=== PATIENT | male | born 1935 ===

== ENCOUNTER 2017-02-12 12:20 | Inpatient (IN) | payer MEDICARE, OTHER ==
[~2017-02-12] VITALS: Ht 160 cm; Wt 53.1 kg
[2017-02-12 12:25] VITALS: BP 147/118; PULSE 77; RESP 31; O2SAT 99
--- NOTE | 2017-02-12 12:28 | ED.REPORT ---
HPI-Stroke / CVA Feb 12, 2017 ED Provider: Sanya Sy MD Patient is an 82 year old male with a hx of HTN who presents to the ED s/p he called his daughter at 1145 and she noticed that he had slurred speech. He managed to tell her that he had total L sided numbness and trouble walking due to L sided weakness. He denies hematuria, hematochezia, or any other symptoms. He does not take any daily medications, including ASA. Nursing Notes Stated Complaint: STROKE Chief Complaint: Neuro Symptoms/ Deficits Nursing Notes Reviewed: Yes Allergies: Coded Allergies: No Known Allergies (Verified Allergy, Unknown, 07/27/14) No Active Prescriptions or Reported Meds General Time Seen by Provider: 12:28 Chief Complaint Slurred speech Left-sided Hx Obtained From: Patient, Other family... Arrived By: Wheelchair Time last known well 1145 Sudden in Onset?: Yes Symptom Duration: Since onset Progression Since Onset: Gradually improving Severity: Current: No pain currently Severity: Maximum: No pain Context: Immunizations Unknown Recent Healthcare: Recent doctor visit Risk Factors )( TPA Administration/Criteria Stroke Thrombolytic Therapy : TPA Considered: Yes Neurologist Contacted: Yes Disc Risk/Benefit/Alternatives: Yes Consent Obtained: Patient Intensive Monitoring Performed: Yes TPA Administered Intravenously: Yes Complications Encountered: No Exclusion Criteria: DBP > 110 despite Tx NIH Stroke Scale Level of Consciousness: Alert and responsive (0) Ask Month & Age: Both questions right (0) Open/Close 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 both tasks (0) Horizontal EO Movements: None (0) Visual Kingsley: No visual loss (0) Facial Palsy: Normal symmetry (0) Right Arm Motor Drift (10s): No drift 10 sec (0) Left Arm Motor Drift (10s): No drift 10 sec (0) Right Leg Motor Drift (5s): No drift 5 sec (0) Left Leg Motor Drift (5s): Drift, hits bed (2) Limb Ataxia FNF/Heel-Farfan: No ataxia (0) Sensation (Arms/Legs/Face): P-prick dull but felt (1) Language Aphasia: No aphasia, normal (0) (Pt cannot read and cannot see well due to cataracts ) Dysarthria: No dysarthria, normal (0) (Pt cannot read and cannot see well due to cataracts ) Extinction/Inattention: No exctinct/inattent (0) NIHSS Score: 3 Time NIHSS Performed: 12:39 Date NIHSS Performed: Feb 12, 2017 )( CVA Risk Stratification Age >60 HypertensionNo EtOH use, No Smoking Risk factors reviewed Past Medical History 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 Male: Denies Hematuria Physical Exam Initial Vital Signs Vital Signs (First) Date Time Temp Pulse Resp B/P Pulse Ox O2 Delivery O2 Flow Rate FiO2 02/12/17 12:25 36.7 77 31 147/118 99 Room Air 02/12/17 13:15 2 Initial VS: Reviewed, Unavailable (none on britt) Abdomen / GI: Soft, Non-tender Skin: Warm, Dry Psychiatric: Mood/affect normal, Behavior normal General/Constitutional: Awake, Alert, No acute distress Conversant Illiterate Head / Eyes: Atraumatic, Normocephalic, PERRL Cataracts present, complicating stroke scale Neck: Atraumatic, Supple, Full range of motion Respiratory / Chest: Atraumatic, Breath sounds NL, Breath sounds = bilat, No respiratory distress Cardiovascular: Heart rate NL, Regular rhythm, Heart sounds NL Neurologic: Oriented X3, Speech NL Left lower extremity motor and sensory defecits Left ipper extremity sensory deficit. stroke scale score 3 Interpretation & Diagnostics Lab Results Interpretation Result Diagram: 02/12/17 1230 02/12/17 1230 Test 02/12/17 12:30 02/12/17 13:11 White Blood Count 5.7th/mm3 (3.8-10.1) Red Blood Count 3.45mil/mm3 (4.40-5.80) Hemoglobin 10.2g/dL (13.8-17.2) Hematocrit 31.4% (41.0-50.0) Mean Corpuscular Volume 91.0fL (81-100) Mean Corpuscular Hemoglobin 29.6pg (27.0-35.0) Mean Corpuscular Hemoglobin Concent 32.5% (32.0-37.0) Red Cell Distribution Width 13.1% (12.3-15.4) Platelet Count 305bil/L (150-400) Neutrophils (%) (Auto) 61.8% (40-74) Lymphocytes (%) (Auto) 27.3% (14-46) Monocytes (%) (Auto) 9.1% (4-12) Eosinophils (%) (Auto) 0.9% (0-5) Basophils (%) (Auto) 0.7% (0-3) Prothrombin Time 10.2sec (8.1-12.5) Prothromb Time International Ratio 0.95ratio Activated Partial Thromboplast Time 24.7sec (22.8-33.0) Sodium Level 133mEq/L (134-144) Potassium Level 4.2mEq/L (3.5-5.2) Chloride Level 98mEq/L (97-108) Carbon Dioxide Level 21mmol/L (18-29) Blood Urea Nitrogen 16mg/dL (8-27) Creatinine 1.07mg/dL (0.76-1.27) Estimat Glomerular Filtration Rate 70mL/min (>59) Glucose Level 134mg/dL (60-99) Calcium Level 9.0mg/dL (8.5-10.1) Magnesium Level 2.2mg/dL (1.6-2.6) Total Bilirubin 0.3mg/dL (0.0-1.2) Aspartate Amino Transf (AST/SGOT) 33U/L (0-50) Alanine Aminotransferase (ALT/SGPT) 16U/L (0-44) Alkaline Phosphatase 167U/L (25-160) Troponin T < 0.010ug/L (0.0-0.011) Total Protein 7.4g/dL (6.4-8.4) Albumin 3.6g/dL (3.4-5.0) Prealbumin 16mg/dL (20-40) Triglycerides Level 48mg/dL (0-149) Cholesterol Level 153mg/dL (100-199) LDL Cholesterol, Calculated 52.400mg/dL (0-99) VLDL Cholesterol 9.600mg/dL HDL Cholesterol 91mg/dL (>39) Cholesterol/HDL Ratio 1.68 (0.0-4.4) Hold Calvo Top Tube Received (Received) Lab Results Interpretation: CBC normal CMP normal ECG Interpretation ECG Interpretation: Sinus rate 66 no ischemia or abnormalities Time: 13:54 Interpreted by: ED physician X-Ray Chest Interpretation Chest Xray Interpretation: IMPRESSION: No acute cardiopulmonary disease. Dictated by: Octavio Peña M.D. on 02/12/2017 at 13:09 Approved by: Octavio Peña M.D. on 02/12/2017 at 13:09 View: Portable, 1 view Interpretation / Wet Read by: Interpret - Radiologist CT Head Interpretation IMPRESSION: 1. No acute intracranial abnormality. 2. Findings relayed to Dr. Sy via ER front man staff Javy on 02.12.17 at 1234 hrs. This study fulfills neurological imaging criteria for inclusion or exclusion of acute stroke therapies based on available published neurological guidelines. Dictated by: Lawson Bursn M.D. on 02/12/2017 at 12:33 Approved by: Lawson Bursn M.D. on 02/12/2017 at 12:35 Study: Head CT no contrast Interpretation / Wet Read by: Interpret - Radiologist Re-Eval/Medical Decision Med Decision/Clinical Course This is an 82-year-old male reports not being on any medications had a last known normal was 11:45 AM with sudden onset of left arm and left leg symptoms concerning for CVA. Patient presented and was declared and immediate code stroke and taken to CT scan. Accu-Chek was normal. On evaluation patient has persistent neurologic deficits with an NIH stroke scale of 3, with inability to ambulate due to dense weakness in the left leg, making him a reasonable candidate for TPA. He had an initial contraindication of an elevated diastolic blood pressure 2, sorbitol was ordered, but on repeat and subsequent serial blood pressure medicine and's the diastolic was normal, so no medication or intubation was required. Telemedicine consultation to neurology's service at [facility] confirmed and agreed with administration of TPA. Checklist was used and TPA was administered. Patient is being admitted to [facility] for continued care. The neurologist Dr. duffyuck a spine consult and follow as an inpatient given use of TPA. Subsequent to admission, at ~1429 patient's symptoms fully resolved. 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 Given the level severity, the images were reviewed with neurology at [facility], while the patient is a candidate for mechanical thrombectomy, he is a potential candidate for carotid endarterectomy , and there is no vascular surgery availability at [facility]. [facility] would like the patient transferred to help facilitate expedited management, and this seems appropriate for the past patient care. Patient and family are updated. Source of Hx: Old records Re-Evaluation/Progress #1: Time of Eval: 13:00 )( Re-Eval Neurologic Exam: Alert Re-Evaluation/Progress Note: Discussed plan for admission and possibility of TPA. Patient understands and agrees with plan. All questions addressed at this time. Re-Evaluation/Progress #2: Time of Eval: 14:28 )( Re-Eval Neurologic Exam: Pt is back to baseline Re-Evaluation/Progress Note: Symptoms have now resolved, patient's able to the use of the left leg, also reports the numbness in the left arm and left leg has resolved - his only complaint is the discomfort in IV in the right side. Patient advised of need for admission, basic plan. Re-Evaluation/Progress #3: Time of Eval: 15:09 )( Re-Eval Neurologic Exam: Pt is back to baseline Re-Evaluation/Progress Note: Discussed plan for transfer. Patient understands and agrees with plan. All questions addressed at this time. Re-Evaluation/Progress #4: Time of Eval: 15:34 Re-Evaluation/Progress Note: Patient has developed a subconjunctival asymptomatic hemorrhage on the right eye. He is doing well neurologically. He is updated along with the family regarding the internal carotid artery stenosis, and the plan to transfer to [facility] Consultation #1: Call Returned at: 13:10 Note: Discussed pt's case with [facility] neurology. Will evaluate pt for TPA at bedside. Consultation #2: Call Returned at: 13:38 Note: Discussed pt's case with [facility] neurology. Give pt TPA. Consultation #3: Referral / Consult Name: Zaki Robertson MD Consulted With: Neurology Call Returned at: 13:54 Note: Discussed pt's case. Agrees to consult. Consultation #4: Referral / Consult Name: Gualberto Lebron MD Consulted With: Hospitalist Call Returned at: 14:12 Archeologist: Will see patient, Agrees with eval, Agrees with plan, Accepts admit Note: Discussed pt's case. Agrees to admit. Consultation #5: Call Returned at: 15:05 Note: Discussed pt's case with [facility] neurology who would like the pt transfered to them. Counseled Regarding: Diagnosis, Lab results, Need for admission Patient Discharge & Departure Impression: Primary Impression: Stroke CVA mechanism: unspecified Qualified Code: I63.9 - Cerebral infarction, unspecified Additional Impression: Left hemiplegia Disposition: Transfer, Acute Care Facility Receiving Hospital: [facility], neurology Transfer Accepted: Yes Transfer Reason: Higher level of care Spoke with: Specialty physician Patient Status: Stable Patient Informed: Yes Discharge Condition All VS Reviewed: Yes Condition: Stable (ERASED) Referrals: Ana Flores PA-C (PCP) Crit Care Except Billable Proc Time Spent: 30-74 minutes Services Performed: Patient management by me, Time spent at bedside, Reviewing test results, Reviewing imaging, Discussing patient care, Documentation in record, Time with fam/surrogate Scribe Attestation Portions of this note were transcribed by Karma Rogers. I, Dr. Sy personally performed the history, physical exam and medical decision-making; I reviewed and confirmed the accuracy of the information in the transcribed note. Signed by: Cristina Cerrato, 02/12/17 copies to: Ana Flores PA-C, Matthew F MD Feb 12, 2017 12:28 KARMA ROGERS Feb 12, 2017 12:45
--- NOTE | 2017-02-12 12:37 | DRSVH ---
PROCEDURE: CT BRAIN TPA INDICATIONS: Possible CVA TECHNIQUE: Noncontrast 4.5 mm thick angled axial sections acquired from the foramen magnum to the vertex, with c oronal reformats. COMPARISON: None. FINDINGS: Image quality: Excellent. CSF spaces: Basal cisterns are patent. No extra-axial fluid collections. The ventricles are symmet aquiles in size and shape. Brain: No intracranial bleeds or masses. There is cerebral volume loss for age, with resultant vent ricular and sulcal prominence. There are periventricular and deep white matter chronic small vessel ischemic changes. There is intracranial internal carotid artery atherosclerosis. Skull and face: Right parietal craniectomy. Right frontal shahriar hole. Calvarium and visualized facial bones otherwise appear intact, without suspicious lesions. Sinuses: Visualized sinuses and mastoids are clear. IMPRESSION: 1. No acute intracranial abnormality. 2. Findings relayed to Dr. Sy via ER front desk host staff Javy on 02.12.17 at 1234 hrs. This study fulfills neurological imaging criteria for inclusion or exclusion of acute stroke therapie s based on available published neurological guidelines. Dictated by: Lawson Burns M.D. on 02/12/2017 at 12:33 Approved by: Lawson Burns M.D. on 02/12/2017 at 12:35
[2017-02-12 13:00] VITALS: BP 140/117; PULSE 72; RESP 20; O2SAT 98
[2017-02-12 13:05] LABS: BASOPHILS % (AUTO) 0.7 % (0-3); EOSINOPHILS % (AUTO) 0.9 % (0-5); MONOCYTES % (AUTO) 9.1 % (4-12); Mean Corpuscular Hemoglobin 29.6 pg (27.0-35.0); NEUTROPHILS % (AUTO) 61.8 % (40-74); Platelet Count 305 bil/L (150-400)
[2017-02-12 13:09] LABS: INR 0.95 ratio
[2017-02-12] MEDS ORDERED: Labetalol 5 mg/mL 20 mL Inj IV PRN (13:10)
--- NOTE | 2017-02-12 13:11 | DRSVH ---
PROCEDURE: X-RAY CHEST ONE VIEW, PORTABLE ([id number]) INDICATIONS: 82-year-old male with cerebrovascular accident. TECHNIQUE: One view of the chest was acquired. COMPARISON: [facility], CR, CHEST 2VW, 07/27/2014, 21:31. [facility], CR, CHEST 2 V IEW, 05/28/2011, 12:47. [facility], RG, XR CXR 2 VIEW, 03/30/2000, 12:23. FINDINGS: Surgical changes and devices: Surgical clips project over the right upper quadrant as before. Lungs and pleura: No pleural effusions or pneumothorax. Lungs are clear. Mediastinum: Mediastinal contours appear normal. Heart size is normal. There is aortic atheroscler osis. Bones and chest wall: No suspicious bony lesions. Overlying soft tissues appear unremarkable. IMPRESSION: No acute cardiopulmonary disease. Dictated by: Octavio Peña M.D. on 02/12/2017 at 13:09 Approved by: Octavio Peña M.D. on 02/12/2017 at 13:09
[2017-02-12 13:15] VITALS: BP 141/63; PULSE 69; RESP 21; O2SAT 99
[2017-02-12 13:20] LABS: TROPONIN T < 0.010 ug/L (0.0-0.011)
[2017-02-12] MEDS ORDERED: Alteplase Dose Per Pharmacist XX ONE (13:25)
[2017-02-12] MEDS ORDERED: Alteplase (TPA) 100 mg/100 mL Premix IV ONE (13:25)
[2017-02-12 13:35] VITALS: BP 145/74; PULSE 70; RESP 17; O2SAT 99
[2017-02-12] MEDS ORDERED: Alteplase (No Charge) 1 mg/mL Syringe IV ONE (13:35)
[2017-02-12 14:00] VITALS: BP 141/67; PULSE 72; RESP 21
[2017-02-12] MEDS ORDERED: 0.9% Sodium Chloride 1,000 ML IV PRN (14:16)
[2017-02-12] MEDS ORDERED: Ondansetron 2 mg/mL 2 mL Inj IVPUSH PRN (14:20)
[2017-02-12] MEDS ORDERED: hydrALAZINE 20 mg/mL Inj IVPUSH PRN (14:20)
[2017-02-12] MEDS ORDERED: Labetalol 5 mg/mL 20 mL Inj IVPUSH PRN (14:20)
[2017-02-12] MEDS ORDERED: Alteplase Dose Per Pharmacist XX SCH (14:20)
--- NOTE | 2017-02-12 14:45 | DRSVH ---
PROCEDURE: CT ANGIO BRAIN NECK TPA INDICATIONS: Ischemia TECHNIQUE: Pre-contrast 4.5 mm thick sections acquired from the foramen magnum to the vertex. After the adminis tration of intravenous contrast, 1 mm thick sections acquired from the aortic arch through the [place] of Hernandez. Post-contrast 4.5 mm thick sections then re-acquired from the foramen magnum to the vert ex. 3-dimensional [id number] (MIP) and/or volume rendering reformats were acquired of the central intracranial vasculature and neck separately. For radiation dose reduction, the foll owing was used: automated exposure control, adjustment of mA and/or kV according to patient size. COMPARISON: [facility], CT, CT BRAIN TPA, 02/12/2017, 12:30. FINDINGS: Image quality: Excellent. BRAIN: The ventricular system and cortical sulci demonstrate atrophy, consistent for the patient's stated ag e. There are areas of increased T2/FLAIR signal intensity within the periventricular and subcortical white matter. There is no acute intra-or extra axial fluid collection. No acute hemorrhage, mass les ion or midline shift. Brainstem is unremarkable. There are no areas of restricted diffusion. Globes a re symmetrical. Sinuses are aerated. Osseous structures are intact. HEAD CT ANGIOGRAPHY: The posterior circulation demonstrates a vertebral artery codominance. Basilar artery and posterior c erebral arteries demonstrate no areas of hemodynamically significant stenosis, vascular occlusion or aneurysmal dilation. Posterior communicating arteries are within normal limits. The anterior circulation, including the anterior and middle cerebral arteries, as well as internal ca rotid arteries demonstrates no areas of hemodynamically significant stenosis, vascular occlusion or a neurysmal dilation. NECK CT ANGIOGRAPHY: The origins of the left and right common and external carotid arteries demonstrate no areas of hemody namically significant stenosis, vascular occlusion or aneurysmal dilation. There is less than 50% rd nosis at the origin of the left internal carotid artery. There is a focal segment of the proximal rig ht internal carotid artery, arising approximately 8 mm distal to the origin, measuring approximately 14 mm with only a very small central portion of opacified luminal flow. There is reconstitution of fl ow distally. Origins of the left and right vertebral arteries demonstrate no areas of hemodynamically significant stenosis, vascular occlusion or aneurysmal dilation. Aortic arch demonstrates convention al anatomy. Limited, visualized portions subclavian vasculature are unremarkable. IMPRESSION: 1. No acute intracranial process. 2. Moderate atrophy and chronic microvascular ischemic changes. 3. No areas of hemodynamically significant stenosis, vascular occlusion or aneurysmal dilation within the posterior circulation. 4. Focal segment of near complete occlusion near the origin of the right internal carotid artery as a lora. 5. No areas of hemodynamically significant stenosis, vascular occlusion or aneurysmal dilation within the anterior circulation. The above findings were discussed with Dr. Sanya Steen 02/12/17 at 2:40 PM. Dictated by: Connie Paul M.D. on 02/12/2017 at 14:32 Approved by: Connie Paul M.D. on 02/12/2017 at 14:44
[2017-02-12 14:51] LABS: Magnesium 2.2 mg/dL (1.6-2.6)
--- NOTE | 2017-02-12 15:43 | DRSVH ---
PROCEDURE: MRI BRAIN WITHOUT CONTRAST ([id number]) INDICATIONS: L weakness TECHNIQUE: Non-contrast axial T1 spin echo, axial T2 fast spin echo, sagittal and axial FLAIR, coronal T2 fast s pin echo, axial gradient echo, axial diffusion and ADC through the brain. COMPARISON: [facility], CT, CT ANGIO BRAIN NECK TPA, 02/12/2017, 14:01. FINDINGS: Image quality: Excellent. CSF spaces: Ventricles appear symmetric in size and shape. Basal cisterns are patent. No extra-axi al fluid collections. Brain: No intracranial bleeds or mass effects. There is cerebral volume loss for age. There are pe riventricular and deep white matter chronic small vessel ischemic changes. Brainstem appears normal. Diffusion-weighted images show no acute ischemic insults. No chronic ischemic insults. Normal int ravascular flow voids are present. Skull and face: Calvarial bone marrow is normal in signal. Orbits are normal. Sinuses: Sinuses and mastoids are clear. IMPRESSION: 1. No acute process. No recent infarct. 2. Volume loss and small vessel ischemic disease. Dictated by: Lawson Burns M.D. on 02/12/2017 at 15:40 Approved by: Lawson Burns M.D. on 02/12/2017 at 15:41
[2017-02-12 15:52] LABS: APPEARANCE,URINE CLEAR (CLEAR,HAZY); COLOR,URINE STRAW (YELLOW); PH,URINE 6.5 (5.0-8.0)
[2017-02-12 15:53] LABS: OCCULT BLOOD,URINE TRACE (NEGATIVE); UROBILINOGEN,URINE NORMAL (NORMAL)
[2017-02-12 16:31] VITALS: BP 150/68; PULSE 79; RESP 25; O2SAT 99
== END 2017-02-12 17:35 | disposition short-term general hospital (02) | DRG 62 ==
LOC: SED 12:20 → CCU 14:14 → OBSVTOIN 14:14 → CCU 14:40
PROVIDERS: ADMIT Internal Medicine; ATTEND Internal Medicine
DX: I63.231 Cerebral infarction due to unspecified occlusion or stenosis of right carotid arteries (principal); G81.94 Hemiplegia, unspecified affecting left nondominant side; R29.703 NIHSS score 3; Z87.891 Personal history of nicotine dependence; R40.2362 Coma scale, best motor response, obeys commands, at arrival to emergency department; R40.2142 Coma scale, eyes open, spontaneous, at arrival to emergency department; R40.2252 Coma scale, best verbal response, oriented, at arrival to emergency department; R40.2412 Glasgow coma scale score 13-15, at arrival to emergency department

== ENCOUNTER 2017-02-26 11:10 | Emergency (ER) | payer MEDICARE, OTHER ==
[~2017-02-26] VITALS: Ht 160 cm; Wt 45.9 kg
[2017-02-26 11:18] VITALS: BP 136/66; PULSE 87; RESP 16; O2SAT 100
[2017-02-26 11:42] LABS: BASOPHILS % (AUTO) 0.3 % (0-3); EOSINOPHILS % (AUTO) 0.2 % (0-5); MONOCYTES % (AUTO) 9.7 % (4-12); Mean Corpuscular Hemoglobin 29.2 pg (27.0-35.0); Mean Corpuscular Volume 92.9 fL (81-100); NEUTROPHILS % (AUTO) 67.1 % (40-74); Platelet Count 566 bil/L (150-400)
--- NOTE | 2017-02-26 11:45 | DRSVH ---
PROCEDURE: X-RAY CHEST ONE VIEW, PORTABLE ([id number]) INDICATIONS: CHEST PAIN TECHNIQUE: One view of the chest was acquired. COMPARISON: [facility], CR, CHEST 2VW, 07/27/2014, 21:31. [facility], CR, XR CHEST 1VW (PORTABLE), 02/12/2017, 12:57. FINDINGS: Surgical changes and devices: Cholecystectomy clips are seen. Lungs and pleura: No pleural effusions or pneumothorax. Lungs are clear. Mediastinum: The cardiac contours are within normal limits. The aorta demonstrates calcification and tortuosity. Bones and chest wall: Age-appropriate bony degenerative changes are seen. No suspicious bony lesion s. Overlying soft tissues appear unremarkable. IMPRESSION: Unremarkable imaging examination for age. Dictated by: Lopez Marin M.D. on 02/26/2017 at 11:43 Approved by: Lopez Marin M.D. on 02/26/2017 at 11:44
--- NOTE | 2017-02-26 11:51 | ED.REPORT ---
HPI-General Illness Date of Service Feb 26, 2017 ED Provider: Silvio Leon MD Patient is a 82 year old male with a history of stroke, status post carotid endarderectomy who presents to the ED due to low blood pressure. He reports that he took a nitro because he was experiencing chest pain but this is not unusual for him and the chest pain was not different than what he normally feels. The patient was doing PT at home, and when his blood pressure dropped the physical therapist became concerned and recommended he come to the ED for evaluation.Patient denies abdominal pain or other symptoms at this time. 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 Physical Exam Vital Signs Vital Signs Date Time Temp Pulse Resp B/P Pulse Ox O2 Delivery O2 Flow Rate FiO2 02/26/17 12:25 89 22 133/59 94 Room Air 02/26/17 12:21 89 22 133/59 94 Room Air 02/26/17 11:18 36.7 87 16 136/66 100 Room Air Initial VS: Reviewed General/Constitutional: Awake, Alert, No acute distress Head / Eyes: Atraumatic, Normocephalic Respiratory / Chest: Atraumatic, Breath sounds NL, Breath sounds = bilat, No respiratory distress Cardiovascular: Heart rate NL, Regular rhythm, Heart sounds NL Abdomen: Atraumatic, Soft, Non-tender Lower Extremity / Pelvis / MS: Atraumatic, No edema Skin: Warm, Dry Neurologic: Oriented X3, Speech NL Interpretation & Diagnostics Lab Results Interpretation Result Diagram: 02/26/17 1129 02/26/17 1129 Test 02/26/17 11:29 02/26/17 13:11 White Blood Count 6.1th/mm3 (3.8-10.1) Red Blood Count 3.08mil/mm3 (4.40-5.80) Hemoglobin 9.0g/dL (13.8-17.2) Hematocrit 28.6% (41.0-50.0) Mean Corpuscular Volume 92.9fL (81-100) Mean Corpuscular Hemoglobin 29.2pg (27.0-35.0) Mean Corpuscular Hemoglobin Concent 31.5% (32.0-37.0) Red Cell Distribution Width 13.9% (12.3-15.4) Platelet Count 566bil/L (150-400) Neutrophils (%) (Auto) 67.1% (40-74) Lymphocytes (%) (Auto) 22.4% (14-46) Monocytes (%) (Auto) 9.7% (4-12) Eosinophils (%) (Auto) 0.2% (0-5) Basophils (%) (Auto) 0.3% (0-3) Activated Partial Thromboplast Time 25.7sec (22.8-33.0) Sodium Level 134mEq/L (134-144) Potassium Level 4.2mEq/L (3.5-5.2) Chloride Level 96mEq/L (97-108) Carbon Dioxide Level 23mmol/L (18-29) Blood Urea Nitrogen 15mg/dL (8-27) Creatinine 0.99mg/dL (0.76-1.27) Estimat Glomerular Filtration Rate 77mL/min (>59) Glucose Level 143mg/dL (60-99) Calcium Level 8.9mg/dL (8.5-10.1) Magnesium Level 2.1mg/dL (1.6-2.6) Total Bilirubin 0.3mg/dL (0.0-1.2) Aspartate Amino Transf (AST/SGOT) 29U/L (0-50) Alanine Aminotransferase (ALT/SGPT) 14U/L (0-44) Alkaline Phosphatase 187U/L (25-160) Troponin T 0.010ug/L (0.0-0.011) Pro-B-Type Natriuretic Peptide 867.5pg/mL (0-486) Total Protein 7.5g/dL (6.4-8.4) Albumin 3.3g/dL (3.4-5.0) Hold [place] Top Tube Received (Received) ECG Interpretation Time: 11:25 Interpreted by: ED physician Normal ECG Interpretation: Normal rate (87), Normal sinus rhythm X-Ray Chest Interpretation Chest Xray Interpretation: IMPRESSION: Unremarkable imaging examination for age. Dictated by: Lopez Marin M.D. on 02/26/2017 at 11:43 Approved by: Lopez Marin M.D. on 02/26/2017 at 11:44 Interpretation / Wet Read by: Interpret - Radiologist Re-Eval/Medical Decision Time of Eval: 12:10 Re-Evaluation/Progress Note: Discussed how nitro can lower blood pressure. Blood pressure is back within normal limits. Patient and daughter are comfortable being discharged. Dicsussed plan for discharge. Patient understands and agrees to plan. All questions were addressed Counseled Regarding: Diagnosis, Lab results, Need for follow-up, When/why to return to ED Discharge & Departure Primary Impression: Transient hypotension Disposition: Home Discharge Condition All VS Reviewed: Yes Condition: Stable Additional Instructions: Your drop in blood pressure was likely due to the Nitroglycerin. Here in the ED, your blood pressure is back to normal. Your EKG and chest X-ray were both normal and reassuring. Follow up with your primary care physician next week. When you take nitroglycerin, make sure that you are seated or laying down. Return to the emergency department if you develop any new or concerning symptoms including prolonged periods of chest pain, shortness of breath, fevers , cough or other worsening/concerning symptoms. Referrals: Ana Flores PA-C (PCP) [place] Attestation Portions of this note were transcribed by Rere Medina. I, Dr. Leon personally performed the history, physical exam and medical decision-making; I reviewed and confirmed the accuracy of the information in the transcribed note. Signed by: Cristina Singh, 02/26/17 copies to: Ana Flores PA-C, Kirk H MD Feb 26, 2017 11:51 Lidia Medina Feb 26, 2017 11:58
[2017-02-26 12:09] LABS: TROPONIN T 0.01 ug/L (0.0-0.011)
[2017-02-26 12:20] LABS: Magnesium 2.1 mg/dL (1.6-2.6)
[2017-02-26 12:21] VITALS: BP 133/59; PULSE 89; RESP 22; O2SAT 94
[2017-02-26 12:25] VITALS: BP 133/59; PULSE 89; RESP 22; O2SAT 94
== END 2017-02-26 12:25 | disposition home or self-care (01) ==
LOC: SED 11:10
DX: I95.89 Other hypotension (principal); Z86.73 Personal history of transient ischemic attack (TIA), and cerebral infarction without residual deficits; Z87.891 Personal history of nicotine dependence